=== PATIENT | male | born 1945 | race Caucasian/White ===

== ENCOUNTER 2016-12-09 15:31 | Observation (INO) ==
[2016-12-09] MEDS ORDERED: Acetaminophen 325 MG TABLET PO PRN (18:16)
[2016-12-09] MEDS ORDERED: Naloxone 0.4 MG/ML INJ IVP PRN (18:16)
--- NOTE | 2016-12-09 19:37 | Internal Med History&Physical ---
<Bonner,Traci Alessia - Last Filed: 12/09/16 20:00> Date of Encounter: 12/09/16 Time of Encounter: 19:37 Assessment and Plan (1) CAD (coronary artery disease) Current visit: Yes Status: Acute with remote PCI over 20 years ago. Has not had ischemic evaluation. Now with CP that started on day of admission. Relieved with SL nitro prior to arrival. OSH troponin negative and EKG with non-specific wave abnormalities. Cont to cycle troponin, check echo and Nuclear stress test. Cont home ASA, BB, statin. Cardiology consulted Qualifiers: Coronary Disease-Associated Artery/Lesion type: [place] artery [place] vs. transplanted heart: [place] heart Associated angina: with stable angina Qualified Code(s): I25.118 - Atherosclerotic heart disease of [place] coronary artery with other forms of angina pectoris (2) CKD (chronic kidney disease) Current visit: Yes Status: Acute per hx. Cr 1.7 per OSH records. Baseline unknown. Gentle IV fluids, monitor repeat CMP Qualifiers: Chronic kidney disease stage: unspecified stage Qualified Code(s): N18.9 - Chronic kidney disease, unspecified (3) Diabetes Current visit: Yes Status: Acute per hx. Control unknown. Holding home oral hypoglycemics. Cont home lantus (at lower does). Add SSI. Monitor blood sugars and titrate PRN Qualifiers: Diabetes mellitus type: type 2 Diabetes mellitus complication status: without complication Diabetes mellitus correction insulin use: with correction use Qualified Code(s): E11.9 - Type 2 diabetes mellitus without complications ; Z79.4 - terminal system operator (current) use of insulin (4) Anemia Current visit: Yes Status: Acute per hx. OSH Hgb 11.2, baseline unknown. Cont home iron supplement. Monitor CBC Qualifiers: Anemia type: unspecified type Qualified Code(s): D64.9 - Anemia, unspecified (5) Diverticulitis Current visit: Yes Status: Acute per hx with RLQ ostomy. Supportive care Qualifiers: Diverticulitis site: unspecified part of intestinal tract Diverticulitis bleeding: without bleeding Diverticulitis complication: without perforation or abscess Qualified Code(s): K57.92 - Diverticulitis of intestine, part unspecified, without perforation or abscess without bleeding (6) DVT prophylaxis Current visit: Yes Status: Acute heparin Internal Medicine - H&P: HPI Chief complaint: chest pain Admitted From: Home Plans for Post Hospital Care: Home History of present illness: Mr. Wu is a 71 year old male with PMH CAD, DM, CKD, anemia and diverticulitis who presented OSH with complaint of chest pain. He was found to have and abnormal EKG and was transferred to [facility] for further work-up and treatment. Information obtained from chart review, OSH record review and patient report. Patient says he was up doing light house work ~ 0700 on day of admission. CP was located on the lef, radiated down left arm and to neck at times. Described chest pain as sharp to dull. Rated 6-7/10. Nothing made worse and nitro at [place] relieved chest pain. He has no CP or SOB on my exam Past Med Surg Social Fam HX - Past Medical History Medical history: diabetes, renal disease Psychiatric history: no psych history - Past Surgical History Surgical History: colostomy - Social History Smoking Status: Former smoker Smokeless Tobacco Status: No Alcohol use: none Drug use: none - Family History Sister Hx Family Cardiac Disorders: Yes Hx Family Cancer: Yes Internal Medicine - H&P: Meds Acetaminophen [Tylenol] 500 mg PO Q6HR PRN 12/09/16 [History] Aspirin 325 mg PO DAILY 12/09/16 [History] Carvedilol [Coreg] 6.25 mg PO BIDWM 12/09/16 [History] Ferrous Sulfate 325 mg PO BIDWM 12/09/16 [History] HYDROcodone/Acet 7.5/325 mg [[place] 7.5-325 mg] 1 tab PO TID 12/09/16 [History] Insulin Glargine [Lantus] 25 - 30 unit SQ HS 12/09/16 [History] Pantoprazole Sodium [Protonix] 40 mg PO DAILY 12/09/16 [History] Pioglitazone HCl [Actos] 30 mg PO DAILY 12/09/16 [History] Simvastatin [Zocor] 40 mg PO HS 12/09/16 [History] metFORMIN [Glucophage] 500 mg PO BIDWM 12/09/16 [History] Allergies sulfamethoxazole [From Bactrim] Allergy (Verified 12/09/16 17:43) Confusion trimethoprim [From Bactrim] Allergy (Verified 12/09/16 17:43) Confusion gabapentin Adverse Reaction (Verified 12/09/16 19:20) Agitated All Systems PM: A 10-system review of systems was performed and is negative for pertinent findings except as documented above in the HPI. - Constitutional Constitutional: no chills, no fever(s), no night sweats - EENT Eyes: no change in vision, no discharge, no pain, no photophobia Ears: no ear discharge, no ear pain, no tinnitus Nose, mouth and throat: no dysphagia, no nasal discharge, no neck pain, no sore throat - Cardiovascular Cardiovascular ROS IM: no chest pain, no diaphoresis, no dyspnea, no lightheadedness, no palpitations, no syncope - Respiratory Respiratory: no cough, no dyspnea, no wheezing, no excessive phlegm production - Gastrointestinal Gastrointestinal: no abdominal pain, no diarrhea, no hematemesis, no hematochezia, no melena, no nausea, no vomiting - Musculoskeletal Musculoskeletal ROS IM: no numbness, no tingling - Integumentary Integumentary IM: no rash, no unusual bruising - Neurological Neurological ROS: no confusion, no convulsions, no focal weakness, no numbness, no tingling, no tremor(s) - Hematologic/Lymphatic Hematologic/Lymphatic: no easy bruising - Constitutional Vitals: Temp Pulse Resp BP Pulse Ox 98.3 F 65 16 156/79 98 12/09/16 17:49 12/09/16 17:49 12/09/16 17:49 12/09/16 17:49 12/09/16 17:49 General appearance: Present: A&O X 3, no acute distress - Head Head exam: Present: atraumatic, normocephalic - Eye Eye exam: Present: PERRL, conjuntiva pink, sclera anicteric Pupils: Present: PERRL - Neck Neck exam general surgery: Present: supple, trachea midline. Absent: lymphadenopathy - Respiratory Respiratory exam: Present: CTAB. Absent: accessory muscle use, rales, rhonchi, wheezes - Cardiovascular Cardiovascular exam: Present: RRR, +S1, +S2. Absent: diastolic murmur, gallop, rubs, systolic murmur - GI/Abdominal GI/Abdominal exam: Present: normal bowel sounds, soft, no peritoneal signs. Absent: distended, tenderness Additional comments: RLQ ostomy - Extremities Exam Extremities exam: Present: warm, radial pulses palpable and symetrical. Absent : calf tenderness, cyanotic, pedal edema - Neurological Exam Neurological exam: Present: CN II-XII intact, oriented X3, no focal deficits. Absent: pronater drift, facial droop, speech deficit - Skin Skin exam: Present: dry, intact Internal Med - H&P Results - EKG Data -: No EKG Interpreted by Myself <Colt Hamm - Last Filed: 12/10/16 00:12> Date of Encounter: 12/09/16 Internal Medicine - H&P: HPI History of present illness: Mr. Wu is a 71 year old male All Systems PM: A 10-system review of systems was performed and is negative for pertinent findings except as documented above in the HPI. - Constitutional Vitals: Temp Pulse Resp BP Pulse Ox 98.3 F 65 16 156/79 98 12/09/16 17:49 12/09/16 17:49 12/09/16 17:49 12/09/16 17:49 12/09/16 17:49 Internal Med - H&P Results - Labs Labs: Cardiac Enzymes 12/09/16 Range/Units 19:59 Troponin I 0.02 (0-0.03) ng/mL - Attending Attestation I personally interviewed and examined this patient and my medical decision- making was reviewed with the Advanced Practice Nurse. I agree with the documented findings, disposition and treatment plan as described. We will wait for the report of the stress test and based on that decide whether cardiology input is warranted.
[2016-12-09] MEDS ORDERED: *HR* Dextrose 50 % in Water (Syg) 50 ML SYRINGE IVP PRN (19:58)
[2016-12-09] MEDS ORDERED: Dextrose Gel 15 GM PO PRN ×2 (19:58)
[2016-12-09] MEDS ORDERED: D5% in Water 1,000 ML IVC PRN (19:58)
[2016-12-09] MEDS ORDERED: Insulin LISPRO 300 UNITS/3 ML VIAL SQ SCH (21:00)
[2016-12-09] MEDS ORDERED: Insulin DETEMIR 100 UNIT/ML X5UNITS SQ SCH (21:00)
[2016-12-09] MEDS: *HR* HYDROcodone/Acet 7.5/325 mg TABLET PO SCH (21:14)
[2016-12-09] MEDS: *HR* Heparin 5,000 UNIT/ML VIAL SQ SCH (23:10)
[2016-12-09] MEDS ORDERED: Nitroglycerin 0.4 MG TAB.SUBL SL PRN (23:48)
[2016-12-10 03:29] LABS: Basophils % 0.7 %; Eosinophils # 0.3 K/mcL (0.0-0.6); Eosinophils % 5.4 %; Hemoglobin 11.7 g/dL (12.9-16.9); Immature Granulocytes % 0.3 % (0-4); Lymphocytes # 1.7 K/mcL (0.6-4.6); Lymphocytes % 28.5 %; Mean Corpuscular HGB Conc 33.4 g/dL (31.6-35.5); Mean Corpuscular Volume 92.6 fL (83.0-100.0); Mean Platelet Volume 12.8 fL (9.4-12.4); Monocytes # 0.6 K/mcL (0.0-1.3); Monocytes % 10.7 %; Neutrophils # 3.2 K/mcL (1.6-8.9); Platelet Count 166 K/mcL (140-400); Red Blood Count 3.78 M/mcL (4.19-5.50); Red Cell Distribution Width 13.2 % (11.5-14.5); Segmented Neutrophils % 54.4 %
[2016-12-10 03:33] LABS: Hemoglobin A1C 8.2 %
[2016-12-10 03:39] LABS: Calcium 8.8 mg/dL (8.6-10.8); Chol/HDL Ratio 3.5 (0-4.9); Potassium 3.5 mEq/L (3.5-4.5)
[2016-12-10] MEDS: *HR* Heparin 5,000 UNIT/ML VIAL SQ SCH (05:49)
[2016-12-10] MEDS ORDERED: Regadenoson 0.4 MG/5 ML SYRINGE IVP ONE (06:21)
[2016-12-10] MEDS ORDERED: Aspirin 325 MG TABLET PO SCH (09:00)
[2016-12-10] MEDS: *HR* HYDROcodone/Acet 7.5/325 mg TABLET PO SCH (10:48)
[2016-12-10] MEDS: Insulin LISPRO 300 UNITS/3 ML VIAL SQ SCH (10:48)
--- NOTE | 2016-12-10 11:12 | Nuclear Medicine Stress Report ---
Regadenoson Nuclear Stress Name: Missael Wu Date of Study: 12/10/2016 Date: 1945 Ht: 71.0 in Medical Record#: [id number] Age: 71 Wt: 182.0 lb Gender: Male Order #: [id number] Location: [facility] Provider: Myra Mcqueen CNP Reading Physician: Wallace Galindo DO, [facility], [facility] Ordering Physician: Reza Starks DO Primary Care Physician: Ariel Manuel MD Stress Technologist: Aravind Ji, HR OPERATIONS ADVISOR, CPFT Math Professor: Jayshree Madrid Indications: Chest Pain Impression: Pharmacologic stress ECG is non diagnostic for ischemia due to baseline non-specific ST and T changes. Chest discomfort reported during stress, which is a nonspecific with Lexiscan. Gated EF = 67%. Perfusion imaging was negative for ischemia or infarct. History: Diabetes Hypercholesteremia Prior PCI Stress Test Summary: Stress Test Type: Pharmacologic Regadenoson 0.4mg/5ml given IV Baseline Information: Initial Heart Rate: 69 Blood Pressure: 130/74 Stress Information: Stress Time: 4 min 00 sec Test Terminated Due to (primary): As per protocol Maximum Blood Pressure: 104/64 Maximum Heart Rate: 80 Percent Maximum Heart Rate Achieved: 54 Double Product: 1.33557 METS Reached: 1 Symptoms: Chest pressure Nuclear Summary: SPECT myocardial perfusion imaging using Tc99m Sestamibi given intravenously was performed at rest and following cardiac stress testing. The resting images were obtained following initial dose of 11 mCi. Following stress an additional dose of 33.6 mCi was given at peak exercise or 30 seconds post regadenoson infusion. Medication Given: Time Medication Dose Units Route Findings: Stress Note * Resting ECG demonstrated normal sinus rhythm. * No baseline arrhythmias were noted. * Pharmacologic stress ECG is non diagnostic for ischemia due to baseline non-specific ST and T changes. * No arrhythmias were noted during stress. * Chest discomfort reported during stress, which is a nonspecific with Lexiscan. * Normal hemodynamic responses to pharmacologic stress. Study Quality * Study quality is average. Gated EF % * Gated EF = 67%. Left Ventricle * The left ventricle is not dilated. NORMALS * Normal wall motion. * Normal Segmental Perfusion in rest. * Normal segmental perfusion in stress. TID * No evidence of transient ischemic dilatation. TID ratio * TID ratio = 0.83. Lung Uptake * There is no evidence of increase lung uptake. Updated by Wallace Galindo DO, MAYELA, LORENA, LINDSEY on 12/10/2016 11:04:25 AM electronically signed on 12/10/2016 11:07:16 AM with status of Final
[2016-12-10 11:48] VITALS: BP 122/75
--- NOTE | 2016-12-10 12:09 | ECHO - Doppler Report ---
Echocardiogram Name: Missael Wu Date of Study: 12/10/2016 Date: 1945 Ht: 71.0 in Medical Record#: [id number] Age: 71 Wt: 181.0 lb Gender: Male BSA: 2.02 Order #: [id number] Location: [facility] Room #: 2NE21 Reading Physician: Wallace Galindo DO, FACC, LORENA Cad Engineer: DARLIN VillaltaT, RD Ordering Physician: Joanna Bonner CNP Primary Physician: Ariel Manuel MD Indications: Chest pain Impressions: LVEF 60-65%. Normal LV chamber sizeand function. Asymmetric hypertrophy of the basal septum. Mild left ventricular diastolic dysfunction. Normal right ventricular structure and function. Mild aortic regurgitation. No evidence of pulmonary hypertension. Left Ventricular Wall Motion: Rest Echo Findings All wall segments showed normal motion. Findings: Study Quality * Technically adequate exam. ECG Findings * Normal sinus rhythm. Left Ventricle * LVEF 60-65%. * Normal LV chamber sizeand function. * Asymmetric hypertrophy of the basal septum. * Mild left ventricular diastolic dysfunction. Right Ventricle * Normal right ventricular structure and function. Left Atrium * Mildly dilated left atrium. Right Atrium * Normal right atrial size. Interatrial Septum * No evidence of PFO by color Doppler. Aortic Valve * Trileaflet aortic valve. * Mildly calcified aortic valve leaflets. * Mild aortic regurgitation. * No aortic stenosis. Mitral Valve * Mild mitral annular calcification. * Mildly thickened mitral valve leaflets. * No mitral regurgitation. * No mitral stenosis. Tricuspid Valve * Normal tricuspid valve structure and function. * Trace tricuspid regurgitation. * No evidence of pulmonary hypertension. Pulmonic Valve * Normal pulmonic valve structure and function. * No pulmonic regurgitation. Aorta * Normally sized aortic root. Pericardium * The pericardium appears normal. IVC * Normal IVC dimensions and inspiratory collapse. Pulmonary Artery * Normal visualized portions of the main pulmonary artery. History Diabetes Measurements: BP: 129/ 73 2D Normal Values RVIDd: 3.30 cm <2.7 cm IVSd: 1.50 cm 0.6 - 1.0 cm LVIDd: 4.30 cm 3.7 - 5.6 cm LVPWd: 1.10 cm 0.6 - 1.1 cm LVIDs: 3.20 cm 1.5 - 3.6 cm AO: 2.90 cm < 4.0 cm LA: 4.40 cm 2.0 - 4.0cm %FS: 25.60 cm >25 % LA volume: 42 Mitral Valve Dec Time:320.00 msec Peak E:.72 m/sec Peak A:1.39 m/sec E/A Ratio:0.5 Peak E' Lat Marcelo:5.15 cm/s Peak E' Med Amrcelo:5.01 cm/s E/E' Lat Ratio:14 E/E' Med Ratio:14.4 Tricuspid Valve TV Regurg Peak Grad: 24.00mmHg TV Regurg Peak Marcelo: 2.44m/sec Updated by Wallace Galindo DO, MAYELA, LINDSEY CARRILLO on 12/10/2016 12:02:28 PM electronically signed on 12/10/2016 12:03:30 PM with status of Final Wall Motion Dom[place]: 1=Normal, 2=Hypokinesis, 3=Akinesis, 4=Dyskinesis, 5=Aneurysmal, 6=Hyperkinetic, X=Not Visualized (Blank)=Missing
--- NOTE | 2016-12-10 13:37 | Electrocardiograph Report ---
[address] [place], [place] [address] Test Date: 2016-12-10 Pat Name: Missael Wu Department: 111 Room: 2N1 Gender: Technician'S Helper: ERICA : 1945 Requested By: Tod Ellison Order Number: [id number] Reading MD: Traci Pierson Measurements Intervals [place] Rate: 71 P: 36 [place]: 152 QRS: -23 QRSD: 93 T: 0 QT: 394 QTc: 416 Interpretive Statements SINUS RHYTHM POSSIBLE LEFT ATRIAL ENLARGEMENT BORDERLINE LEFT AXIS DEVIATION ST DEVIATION AND MODERATE T-WAVE ABNORMALITY, CONSIDER LATERAL ISCHEMIA Electronically Signed On 12-10-2016 13:36:00 EDT by Traci Pierson
--- NOTE | 2016-12-10 14:04 | Discharge Summary ---
<Payam Grace - Last Filed: 12/10/16 15:25> Date of Encounter: 12/10/16 Time of Encounter: 14:01 - Discharge Diagnosis (1) Chest pain Priority: Primary Status: Acute Qualifiers: Chest pain type: unspecified Qualified Code(s): R07.9 - Chest pain, unspecified (2) CAD (coronary artery disease) Priority: Secondary Status: Acute Qualifiers: Coronary Disease-Associated Artery/Lesion type: [place] artery [place] vs. transplanted heart: [place] heart Associated angina: with stable angina Qualified Code(s): I25.118 - Atherosclerotic heart disease of [place] coronary artery with other forms of angina pectoris (3) CKD (chronic kidney disease) Priority: Secondary Status: Acute Qualifiers: Chronic kidney disease stage: unspecified stage Qualified Code(s): N18.9 - Chronic kidney disease, unspecified (4) Diabetes Priority: Secondary Status: Acute Qualifiers: Diabetes mellitus type: type 2 Diabetes mellitus complication status: without complication Diabetes mellitus [facility] insulin use: with technician terminal and repeater use Qualified Code(s): E11.9 - Type 2 diabetes mellitus without complications ; Z79.4 - exterminator helper (current) use of insulin (5) Anemia Priority: Secondary Status: Acute Qualifiers: Anemia type: unspecified type Qualified Code(s): D64.9 - Anemia, unspecified (6) DVT prophylaxis Priority: Secondary Status: Acute (7) Diverticulitis Priority: Secondary Status: Acute Qualifiers: Diverticulitis site: unspecified part of intestinal tract Diverticulitis bleeding: without bleeding Diverticulitis complication: without perforation or abscess Qualified Code(s): K57.92 - Diverticulitis of intestine, part unspecified, without perforation or abscess without bleeding - Discharge Medications Prescriptions: Aspirin Enteric Coated [Aspirin EC] 81 mg PO DAILY #30 tablet. Atorvastatin [Lipitor] 40 mg PO HS #30 tablet Home Medications: Acetaminophen [Tylenol] 500 mg PO Q6HR PRN 12/09/16 [History] Carvedilol [Coreg] 6.25 mg PO BIDWM 12/09/16 [History] Ferrous Sulfate 325 mg PO BIDWM 12/09/16 [History] HYDROcodone/Acet 7.5/325 mg [[place] 7.5-325 mg] 1 tab PO TID 12/09/16 [History] Insulin Glargine [Lantus] 25 - 30 unit SQ HS 12/09/16 [History] Pantoprazole Sodium [Protonix] 40 mg PO DAILY 12/09/16 [History] Pioglitazone HCl [Actos] 30 mg PO DAILY 12/09/16 [History] metFORMIN [Glucophage] 500 mg PO BIDWM 12/09/16 [History] Aspirin Enteric Coated [Aspirin EC] 81 mg PO DAILY #30 tablet. 12/10/16 [Rx] Atorvastatin [Lipitor] 40 mg PO HS #30 tablet 12/10/16 [Rx] Allergies/Adverse Reactions: Allergies sulfamethoxazole [From Bactrim] Allergy (Verified 12/09/16 17:43) Confusion trimethoprim [From Bactrim] Allergy (Verified 12/09/16 17:43) Confusion gabapentin Adverse Reaction (Verified 12/09/16 19:20) Agitated Procedures/tests Complete & Pending: Procedures Performed prior 72 hours Category Date Time Status NM lawrence perf SPECT multi [NM] Routine Exams 12/09/16 19:36 Taken ECG 12 lead ECG [ECG] Stat Y 12/09/16 23:48 Completed EV echocardiogram Routine Y 12/10/16 09:00 Completed SP pharm nuclear stress Routine Y 12/10/16 07:45 Completed Date of admission: 12/09/16 17:11 Primary care physician: Ariel Manuel MD Discharging clinician: Payam Grace Anticipated date of discharge: 12/10/16 - Patient Status Disposition: Home, Self-Care Condition: Good Functional capacity at discharge: independent ambulation Overall status at discharge: patient is back to baseline - Discharge Instructions Instructions: Chest Pain (DC), Diabetes Mellitus Type 2 in Adults (DC), Anemia (GEN) Follow Up With: Ariel Manuel MD [Primary Care Provider] - 12/22/16 1:15 pm Wallace Galindo DO [Partnered Physician] - - Diet and Activity Activity: increase activity as tolerated Diet: low fat, low cholesterol, low salt diet Interval History: 71-year-old male past medical history of CAD, diabetes mellitus,CKD, and anemia presented with CP from [facility] left sided intermittent sharp, with radiation to left arm and neck relieved by nitro, associated with diaphoresis, denies nausea , vomiting, and EKG showed t wave inversions in anterior lateral leads from [facility]. EKG here showed Qwaves in leads two and avf with flattened t waves in lateral leads and lead 1 and aVL. EKG was sinus with rate 71 and possible lateral ischemia which was changed from previous. Patient underwent echocardiography showing LVEF 60-65 w/o wall motion, and with mild aortic regurg , with mild left ventricular diastolic dysfunction. Nuclear stress test non- diagnostic for ischemia. Patient is CP free this morning. Able To ambulate without difficulty. Denies shortness of breath, abdominal pain, nausea, vomiting. Patient is stable for discharge. Plan: Discontinue 325 aspirin and start 81 mg daily. Discontinue simvastatin and start 40 mg of atorvastatin daily. Follow-up with cardiology outpatient. Follow-up with primary care physician. Hospital course: Mr. Wu is a 71 year old male - Time Spent with Patient Total time spent providing and/or coordinating discharge services: - Constitutional Vitals: Temp Pulse Resp BP Pulse Ox 98.2 F 64 15 122/75 98 12/10/16 11:47 12/10/16 11:47 12/10/16 11:47 12/10/16 11:47 12/10/16 11:47 General appearance: Present: A&O X 3, no acute distress - Head Head exam: Present: atraumatic, normocephalic - Eye Eye exam: Present: PERRL, conjuntiva pink, sclera anicteric - Neck Neck exam general surgery: Present: supple, trachea midline. Absent: lymphadenopathy - Respiratory Respiratory exam: Present: CTAB. Absent: accessory muscle use, rales, rhonchi, wheezes - Cardiovascular Cardiovascular exam: Present: RRR, +S1, +S2. Absent: diastolic murmur, gallop, rubs, systolic murmur - GI/Abdominal GI/Abdominal exam: Present: normal bowel sounds, soft, no peritoneal signs. Absent: distended, tenderness - Extremities Exam Extremities exam: Present: warm, radial pulses palpable and symetrical. Absent : calf tenderness, cyanotic, pedal edema - Neurological Exam Neurological exam: Present: CN II-XII intact, oriented X3, no focal deficits. Absent: pronater drift, facial droop, speech deficit - Skin Skin exam: Present: dry, intact <Reza Starks - Last Filed: 12/10/16 20:11> Date of Encounter: 12/10/16 - Discharge Diagnosis (1) Chest pain Priority: Primary Status: Acute Qualifiers: Chest pain type: precordial pain Qualified Code(s): R07.2 - Precordial pain (2) CAD (coronary artery disease) Priority: Secondary Status: Acute Qualifiers: Coronary Disease-Associated Artery/Lesion type: [place] artery [place] vs. transplanted heart: [place] heart Associated angina: with stable angina Qualified Code(s): I25.118 - Atherosclerotic heart disease of [place] coronary artery with other forms of angina pectoris (3) Diabetes Status: Acute Qualifiers: Diabetes mellitus type: type 2 Diabetes mellitus complication status: without complication Diabetes mellitus [facility] insulin use: with [facility] use Qualified Code(s): E11.9 - Type 2 diabetes mellitus without complications ; Z79.4 - group home (current) use of insulin Procedures/tests Complete & Pending: Procedures Performed prior 72 hours Category Date Time Status NM lawrence perf SPECT multi [NM] Routine Exams 12/09/16 19:36 Taken ECG 12 lead ECG [ECG] Stat Y 12/09/16 23:48 Completed EV echocardiogram Routine Y 12/10/16 09:00 Completed SP pharm nuclear stress Routine Y 12/10/16 07:45 Completed Date of admission: 12/09/16 17:11 Primary care physician: Ariel Manuel MD Hospital course: Mr. Wu is a 71 year old male - Time Spent with Patient Total time spent providing and/or coordinating discharge services: - Constitutional Vitals: Temp Pulse Resp BP Pulse Ox 98.2 F 64 15 122/75 98 12/10/16 11:47 12/10/16 11:47 12/10/16 11:47 12/10/16 11:47 12/10/16 11:47 - Attending Attestation I examined this patient and my medical decision-making was reviewed with the Resident Physician on 12/10/16. I agree with the documented findings, disposition and treatment plan as described except to the extent set forth below. Mr. Wu is doing OK. His stress and echo are OK. He has no further symptoms. Exam Alert. Comfortable Heart reg Lungs clear I/P 1. Chest pain D/C home today.
== END 2016-12-10 17:15 | disposition home or self-care (01) ==
LOC: 2NENU
PROVIDERS: ADMIT Internal Medicine; ATTEND Internal Medicine

== ENCOUNTER 2020-08-26 18:10 | Observation (INO) ==
[2020-08-27] MEDS ORDERED: Ketorolac 15 MG/ML VIAL IVP PRN (04:02)
[2020-08-27] MEDS ORDERED: Naloxone 0.4 MG/ML INJ IVP PRN (04:02)
[2020-08-27] MEDS ORDERED: *HR* Dextrose 50 % in Water (Vial) 50 ML VIAL IVP PRN (04:11)
[2020-08-27] MEDS ORDERED: D5% in Water 1,000 ML IVC PRN (04:11)
[2020-08-27] MEDS ORDERED: Dextrose Gel 15 GM/37.5 ML TUBE PO PRN ×2 (04:11)
[2020-08-27] MEDS ORDERED: 0.9 % Sodium Chloride 1,000 ML IVC SCH (04:15)
[2020-08-27] MEDS ORDERED: Ondansetron 4 MG/2 ML VIAL IVP PRN (04:37)
[2020-08-27 05:04] LABS: Basophils % 0.4 %; Eosinophils # 0.1 K/mcL (0.0-0.6); Eosinophils % 1.3 %; Hematocrit 36.1 % (37.5-50.1); Hemoglobin 11.7 g/dL (12.9-16.9); Immature Granulocytes % 0.3 % (0-4); Lymphocytes # 1.2 K/mcL (0.6-4.6); Lymphocytes % 13.5 %; Mean Corpuscular HGB Conc 32.4 g/dL (31.6-35.5); Mean Corpuscular Hemoglobin 31.5 pg (28.0-33.3); Mean Platelet Volume 12.2 fL (9.4-12.4); Monocytes # 0.7 K/mcL (0.0-1.3); Monocytes % 7.9 %; Platelet Count 230 K/mcL (140-400); Red Blood Count 3.72 M/mcL (4.19-5.50); Segmented Neutrophils % 76.6 %; White Blood Count 9.1 K/mcL (4.3-11.1)
[2020-08-27 05:08] LABS: INR 1.1; Prothrombin Time 13.1 Seconds (9.4-12.1)
[2020-08-27 05:11] LABS: Activated Partial Thrombo Time 29.9 Seconds (26.0-36.0)
[2020-08-27 05:23] LABS: Albumin 3.6 g/dL (3.5-5.7); Albumin/Globulin Ratio 1.3 (1.1-2.2); Bilirubin,Total 0.5 mg/dL (0.3-1.0); Calcium 8.9 mg/dL (8.6-10.3); Globulin 2.7 g/dL (2.4-3.5); Potassium 4.2 mEq/L (3.5-5.1); Total Protein 6.3 g/dL (6.4-8.9)
[2020-08-27] MEDS: Insulin LISPRO 300 UNITS/3 ML VIAL SUBQ SCH ×3 (08:06→17:48)
[2020-08-27 10:11] LABS: Bilirubin,Urine Negative (Negative); Blood,Urine Moderate (Negative); Clarity,Urine Clear (Clear); Color,Urine Light-Yellow (Yellow); Glucose,Urine (UA) 30 mg/dL (Normal); Ketones,Urine Negative (Negative); Leukocyte Esterase,Urine Trace (Negative); Mucus,Urine Few per lpf (None-Few); Nitrite,Urine Negative (Negative); PH,Urine 5.5 pH Units (5.0-8.0); Protein,Urine 30 mg/dL (Neg-Trace); RBC,Urine 15-30 per hpf (0-3); Specific Gravity,Urine 1.014 (1.010-1.025); Squamous Epithelial Cell,Urine Few per hpf (None-Few); Urobilinogen,Urine Normal (Normal)
[2020-08-27] MEDS ORDERED: Insulin LISPRO 300 UNITS/3 ML VIAL SUBQ SCH (21:00)
[2020-08-27] MEDS: Apixaban 5 MG TABLET PO SCH (21:13)
[2020-08-27] MEDS: carvediloL 6.25 MG TABLET PO SCH (21:13)
[2020-08-28 06:03] LABS: Basophils # 0.1 K/mcL (0.0-0.2); Eosinophils # 0.3 K/mcL (0.0-0.6); Eosinophils % 6.2 %; Hematocrit 34.4 % (37.5-50.1); Hemoglobin 11.2 g/dL (12.9-16.9); Immature Granulocytes % 0.2 % (0-4); Lymphocytes # 1.1 K/mcL (0.6-4.6); Mean Corpuscular HGB Conc 32.6 g/dL (31.6-35.5); Mean Corpuscular Hemoglobin 31.6 pg (28.0-33.3); Mean Corpuscular Volume 97.2 fL (83.0-100.0); Mean Platelet Volume 11.9 fL (9.4-12.4); Monocytes # 0.5 K/mcL (0.0-1.3); Monocytes % 8.9 %; Neutrophils # 3.2 K/mcL (1.6-8.9); Platelet Count 210 K/mcL (140-400); Red Blood Count 3.54 M/mcL (4.19-5.50); Red Cell Distribution Width 13.7 % (11.5-14.5); Segmented Neutrophils % 61.7 %; White Blood Count 5.2 K/mcL (4.3-11.1)
[2020-08-28 06:21] LABS: BUN/Creatinine Ratio 22 (6-26); Blood Urea Nitrogen 31 mg/dL (8-23); Calcium 8.8 mg/dL (8.6-10.3); Carbon Dioxide 23 mEq/L (23-29); Chloride 106 mEq/L (98-107); Glucose 286 mg/dL (70-105); Osmolality,Calculated 299 (280-300); Potassium 4.3 mEq/L (3.5-5.1); Sodium 136 mEq/L (136-145); eGFR For African Americans > 60 (> 60); eGFR For Non-African Americans 50 (> 60)
[2020-08-28] MEDS ORDERED: Insulin LISPRO 300 UNITS/3 ML VIAL SUBQ SCH (07:30)
[2020-08-28 07:59] VITALS: BP 151/70
[2020-08-28] MEDS: Apixaban 5 MG TABLET PO SCH (08:24)
[2020-08-28] MEDS: carvediloL 6.25 MG TABLET PO SCH (08:25)
[2020-08-28] MEDS ORDERED: amLODIPine 5 MG TABLET PO SCH (09:00)
[2020-08-28] MEDS ORDERED: Aspirin Enteric Coated 81 MG Tablet PO SCH (09:00)
== END 2020-08-28 11:04 | disposition home or self-care (01) ==
LOC: 3BNU
PROVIDERS: ADMIT Internal Medicine; ATTEND Internal Medicine